=== PATIENT | male | born 1985 | race Hispanic/Latino ===

== ENCOUNTER 2021-08-27 12:56 | Emergency (ER) | payer BC ==
[2021-08-27] MEDS ORDERED: NA CHLORIDE 0.9% 1,000 ML ONE (13:31)
[2021-08-27 13:32] LABS: Absolute Lymphocytes (CBC) 1.5 K/uL (0.7-4.9); Hematocrit 41.6 % (39.6-49.0); Lymphocytes % 23.1 % (15.3-44.8); MPV 7.6 fL (7.6-11.3); RBC Red Blood Cell Count 4.64 M/uL (4.33-5.43)
--- NOTE | 2021-08-27 14:55 | RAD REPORT ---
EXAM DESCRIPTION: RAD - Ankle Left 3 View - 08/27/2021 2:47 pm CLINICAL HISTORY: fall Fall, trauma, pain COMPARISON: No comparisons FINDINGS: Mild lateral soft tissue swelling is seen. Small calcaneal spurs. No fracture or dislocati on.
--- NOTE | 2021-08-27 15:01 | EDPHYS ---
Physician Documentation [facility] Name: Darvin Sheikh Age: 36 yrs Sex: Male : 1985 Arrival Date: 08/27/2021 Time: 12:59 Bed 7 Private MD: ED Physician Aliyah Kerr HPI: 08/27 14:13 This 36 yrs old Male presents to ER via EMS with complaints of ankle pain. jmm 14:13 The patient presents with an injury, pain. Onset: The symptoms/episode began/occurred jmm acutely. Modifying factors: The symptoms are alleviated by nothing. the symptoms are aggravated by nothing. This is a 36 year old female with no chronic medical conditions that presents to the ED with complaints of left ankle pain which occurred after slipping while cutting down a tree with a chainsaw. Patient also complains of fatigue he attributes to heat exhaustion. . Historical: - Allergies: 13:03 No Known Allergies; ww - Home Meds: 13:03 None [Active]; ww - PMHx: 13:03 Kidney stones; ww - Immunization history:: Adult Immunizations up to date. - Social history:: Smoking status: Patient denies any tobacco usage or history of. ROS: 14:13 Cardiovascular: Negative for chest pain, palpitations, and edema, Respiratory: Negative jmm for shortness of breath, cough, wheezing, and pleuritic chest pain. 14:13 Constitutional: Positive for body aches. 14:13 All other systems are negative. Exam: 14:13 Constitutional: This is a well developed, well nourished patient who is awake, alert, jmm and in no acute distress. Head/Face: atraumatic. Eyes: EOMI, no conjunctival erythema appreciated ENT: Moist Mucus Membranes Neck: Trachea midline, Supple Chest/axilla: Normal chest wall appearance and motion. Cardiovascular: Regular rate and rhythm. No edema appreciated Respiratory: Normal respirations, no respiratory distress appreciated Abdomen/GI: Non distended, soft Back: Normal ROM Skin: General appearance color normal 14:13 Musculoskeletal/extremity: left ankle swelling noted, compartments are soft, NVI, full dorsalis pulse. 14:13 Skin: Appearance: Color: normal in color. 14:13 Neuro: Orientation: is normal, Mentation: is normal, Memory: is normal. 14:13 Psych: Behavior/mood is pleasant, cooperative. Vital Signs: 13:00 BP 97 / 72; Pulse 84; Resp 18; Temp 97.6; Pulse Ox 99% on R/A; Weight 104.33 kg; Height ww 5 ft. 11 in. (180.34 cm); Pain 0/10; 13:33 BP 96 / 69; Pulse 88; Resp 16; Pulse Ox 100% on R/A; ww 14:13 BP 97 / 70; Pulse 86; Resp 16; Pulse Ox 99% on R/A; ww 15:15 BP 106 / 75; Pulse 75; Resp 12 S; Pulse Ox 100% on R/A; jg9 13:00 Body Mass Index 32.08 (104.33 kg, 180.34 cm) ww MDM: 13:03 Patient medically screened. [facility] 14:59 Data reviewed: vital signs, nurses notes. Counseling: I had a detailed discussion with elle the patient and/or guardian regarding: the historical points, exam findings, and any diagnostic results supporting the discharge/admit diagnosis, lab results, radiology results, the need for outpatient follow up, to return to the emergency department if symptoms worsen or persist or if there are any questions or concerns that arise at home. ED course: Patient is alert and non toxic in appearance in the ED. Patient advised to follow up with pcp and otherwise given strict return precautions. Patient understood and agrees with the plan of care. . 08/27 13:06 Order name: CBC with Diff; Complete Time: 13:38 [facility] 08/27 13:07 Order name: BMP; Complete Time: 13:52 [facility] 08/27 13:06 Order name: Ankle Left 3 View XRAY; Complete Time: 14:57 [facility] 08/27 13:07 Order name: CPK; Complete Time: 13:52 [facility] 08/27 14:57 Order name: Guillermo wrap-joint; Complete Time: 15:29 [facility] Administered Medications: 13:29 Drug: NS 0.9% 1000 ml Route: IV; Rate: 1 bolus; Site: right antecubital; ww 15:29 Follow up: IV Status: Completed infusion; IV Intake: 1000ml jg9 Disposition Summary: 08/27/21 15:00 Discharge Ordered Location: Home [facility] Condition: Stable [facility] Diagnosis - Sprain of ankle [facility] Followup: [facility] - With: Glenn Haile MD - When: 2 - 3 days - Reason: Recheck today's complaints, Continuance of care, Re-evaluation by your physician Discharge Instructions: - Discharge Summary Sheet elle - Ankle Sprain elle Forms: - Medication Reconciliation Form elle - Thank You Letter elle - Antibiotic Education aggiem - Prescription Opioid Use elle - Work release form jg9 Signatures: Dispatcher [employer] EDDC Ladarius Peterson PA PA jmm Wood, Whitney RN RN Nyasia Lara RN jg9
--- NOTE | 2021-08-27 15:01 | ER ---
Nurse's Notes [facility] Name: Darvin Sheikh Age: 36 yrs Sex: Male : 1985 Arrival Date: 08/27/2021 Time: 12:59 Bed 7 Private MD: Diagnosis: Sprain of ankle Presentation: 08/27 13:00 Chief complaint: Patient states: Left ankle pain after falling at the [place]. Received ww Toradol in route with EMS. Chief complaint: EMS states: EMS stated that his pressure got low on scene and received IV fluid. Coronavirus screen: Vaccine status: Patient reports receiving the 2nd dose of the covid vaccine. Client denies travel out of the [place] in the last 14 days. Ebola Screen: Patient denies travel to an Ebola-affected area in the 21 days before illness onset. Initial Sepsis Screen: Does the patient meet any 2 criteria? No. Patient's initial sepsis screen is negative. Does the patient have a suspected source of infection? No. Patient's initial sepsis screen is negative. Risk Assessment: Do you want to hurt yourself or someone else? Patient reports no desire to harm self or others. Onset of symptoms was August 27, 2021. 13:00 Method Of Arrival: EMS: [facility] ww 13:00 Acuity: VIGNESH 3 ww Triage Assessment: 13:03 General: Appears in no apparent distress. Behavior is calm, cooperative. Pain: ww Complains of pain in left lateral ankle, lateral aspect of left foot, left Achilles, left heel, left medial ankle, medial aspect of left foot, anterior aspect of left ankle and dorsum of left foot. EENT: No signs and/or symptoms were reported regarding the EENT system. Neuro: Level of Consciousness is awake, alert, obeys commands, Oriented to person, place, time, situation, Moves all extremities. Speech is normal. Cardiovascular: Capillary refill < 3 seconds Patient's skin is warm and dry. Respiratory: Airway is patent Respiratory effort is even, unlabored, Respiratory pattern is regular, symmetrical. GI: No signs and/or symptoms were reported involving the gastrointestinal system. : No signs and/or symptoms were reported regarding the genitourinary system. Derm: No signs and/or symptoms reported regarding the dermatologic system. Skin is intact, is healthy with good turgor, Skin is pink, warm \T\ dry. Musculoskeletal: Circulation, motion, and sensation intact. Reports pain in left lateral ankle, lateral aspect of left foot, anterior aspect of left ankle and dorsum of left foot. Historical: - Allergies: 13:03 No Known Allergies; ww - Home Meds: 13:03 None [Active]; ww - PMHx: 13:03 Kidney stones; ww - Immunization history:: Adult Immunizations up to date. - Social history:: Smoking status: Patient denies any tobacco usage or history of. Screenin:04 Abuse screen: Denies threats or abuse. Denies injuries from another. Nutritional ww screening: No deficits noted. Tuberculosis screening: No symptoms or risk factors identified. Fall Risk None identified. Fall in past 12 months (25 points). No secondary diagnosis (0 pts). No IV (0 pts). Ambulatory Aid- None/Bed Rest/Nurse Assist (0 pts). Gait- Normal/Bed Rest/Wheelchair (0 pts) Mental Status- Oriented to own ability (0 pts). Total Lay Fall Scale indicates Low Risk Score (25-44 pts). Fall prevention measures have been instituted. Side Rails Up X 2 Placed close to Nursing Station 1:1 attendant Assigned to Pt. Frequent Obs/Assesments occuring As available Patient and Family Educated on Fall Prevention Program and strategies. Assessment: 13:04 Reassessment: Patient appears in no apparent distress at this time. No changes from previously documented assessment. see triage assesment. 14:13 Reassessment: Patient appears in no apparent distress at this time. No changes from previously documented assessment. Patient and/or family updated on plan of care and expected duration. Pain level reassessed. Patient is alert, oriented x 3, equal unlabored respirations, skin warm/dry/pink. Vital Signs: 13:00 BP 97 / 72; Pulse 84; Resp 18; Temp 97.6; Pulse Ox 99% on R/A; Weight 104.33 kg; Height ww 5 ft. 11 in. (180.34 cm); Pain 0/10; 13:33 BP 96 / 69; Pulse 88; Resp 16; Pulse Ox 100% on R/A; ww 14:13 BP 97 / 70; Pulse 86; Resp 16; Pulse Ox 99% on R/A; ww 15:15 BP 106 / 75; Pulse 75; Resp 12 S; Pulse Ox 100% on R/A; jg9 13:00 Body Mass Index 32.08 (104.33 kg, 180.34 cm) ED Course: 12:59 Patient arrived in ED. eb 13:00 Delmis Cuba, RN is Primary Nurse. ww 13:02 Ladarius Peterson PA is PHCP. pm1 13:03 Triage completed. ww 13:03 Arm band placed on. ww 13:04 Patient has correct armband on for positive identification. Bed in low position. Call ww light in reach. Side rails up X 1. 13:04 Maintain EMS IV. Dressing intact. Good blood return noted. Site clean \T\ dry. ww 14:49 Ankle Left 3 View XRAY In Process Unspecified. EDMS 15:00 Glenn Haile MD is Referral Physician. [facility] 15:01 Aliyah Kerr MD is Attending Physician. [facility] 15:30 No provider procedures requiring assistance completed. jg9 15:30 IV discontinued. jg9 Administered Medications: 13:29 Drug: NS 0.9% 1000 ml Route: IV; Rate: 1 bolus; Site: right antecubital; ww 15:29 Follow up: IV Status: Completed infusion; IV Intake: 1000ml jg9 Intake: 15:29 IV: 1000ml; Total: 1000ml. jg9 Outcome: 15:00 Discharge ordered by . [facility] 15:30 Discharged to home via wheelchair, with crutches, with family. jg9 15:30 Condition: stable 15:30 Discharge instructions given to patient, Instructed on discharge instructions, follow up and referral plans. Demonstrated understanding of instructions, follow-up care, crutch walking. 15:30 Patient left the ED. jg9 Signatures: Dispatcher [employer] EDMS Ladarius Peterson PA PA [facility] Zen Romano NP DIRECTOR OF DISTANCE LEARNING pm1 Izabel Bonilla Jennifer, RN RN jg9 Delmis Cuba, RN RN
[2021-08-27 15:35] VITALS: TEMP 97.6
[2021-08-27 15:39] VITALS: BP 106/75; O2SAT 100
== END 2021-08-27 15:30 | disposition home or self-care (01) ==
LOC: ER 12:56
DX: S93.402A Sprain of unspecified ligament of left ankle, initial encounter (principal); R53.83 Other fatigue; X58.XXXA Exposure to other specified factors, initial encounter; Y93.89 Activity, other specified
CPT/HCPCS: 96361; 85025; 80048; 36415; 82550; 73610; 96360; 99284; J7030